=== PATIENT | male | born 1935 | race Caucasian/White ===

== ENCOUNTER 2021-05-17 12:18 | Inpatient (IN) | payer MEDICARE, BC ==
[2021-05-17] VITALS (10 sets, daily range): BP systolic 132–159; BP diastolic 70–92; PULSE 70–93; TEMP 97.3–97.8
[~2021-05-17] VITALS: Ht 180.3 cm; Wt 91.8 kg
[2021-05-17] MEDS ORDERED: ASPIRIN 81M81 MG/TA2 PO (13:34)
[2021-05-17] MEDS ORDERED: CALCIUM 600 MG1 EAC2 PO (13:35)
[2021-05-17] MEDS ORDERED: PLAVIX 75MG TAB75 MG PO (13:36)
[2021-05-17] MEDS ORDERED: VITAMIN B122500 MCG SL (13:37)
[2021-05-17] MEDS ORDERED: FERROUS SU325 MG/TAB PO (13:38)
[2021-05-17] MEDS ORDERED: GARLIC100 MG PO (13:38)
[2021-05-17] MEDS ORDERED: ZESTRIL2.5 MG PO (13:39)
[2021-05-17] MEDS ORDERED: TOPROL XL 25MG25 MG PO (13:40)
[2021-05-17] MEDS ORDERED: GLUCOPHAGE1000 MG PO (13:40)
[2021-05-17] MEDS ORDERED: CENTRUM SILVER1 CTB PO (13:41)
[2021-05-17] MEDS ORDERED: SENNA-S 50 MG-81 TAB PO ×2 (13:42→18:14)
[2021-05-17] MEDS ORDERED: MASON NATURAL600 MG PO (13:42)
[2021-05-17] MEDS ORDERED: FLOMAX 0.40.4 MG/CAP PO (13:43)
[2021-05-17] MEDS ORDERED: TIMOLOL MALEATE5 M1 OP (13:43)
[2021-05-17 14:05] LABS: HEMATOCRIT 40.1 % (42.0-52.0); HEMOGLOBIN 13.7 g/dl (13.5-18.0); MEAN CELL VOLUME 92 fl (80.0-100.0); MEAN CORPUSCULAR HEMOGLOBIN 31 pg (27-31); MEAN CORPUSCULAR HGB CONC 34 g/dl (33.0-37.0); MEAN PLATELET VOLUME 9.6 fl (7.4-10.4); PLATELET COUNT 362 K/mm3 (130-400); RED BLOOD COUNT 4.37 M/mm3 (4.20-5.60); REDCELL DISTRIBUTION WIDTH-CV 12.3 % (11.5-14.5)
[2021-05-17 14:11] LABS: INR 1.1 (0.8-3.0); PROTHROMBIN TIME 12.5 SECONDS (9.7-12.8)
[2021-05-17 14:21] LABS: ALBUMIN 3.9 gm/dL (3.4-4.8); BILIRUBIN,TOTAL 0.5 mg/dL (0.2-1.2); CALCIUM 9.2 mg/dL (8.4-10.2); CREATININE, serum 0.94 mg/dL (0.72-1.25); POTASSIUM 4.3 mmol/L (3.5-4.5); TOTAL PROTEIN 7.2 gm/dL (6.2-8.1)
--- NOTE | 2021-05-17 18:40 | NUR ---
Pt arrived to the floor, he is alert and oriented but hard of hearing. Currently he is reporting a sore throat, ice chips provided. Pt tolerating PO jello and ice water at this time. Daughter at bedside. POC discussed with patient and daughter. Drain intact to L neck, randa intact. Call light within reach.
--- NOTE | 2021-05-17 19:26 | NUR ---
Called c/o pain to neck-rating pain 6/10 on pain scale-described as constant throbbing. Tylenol given per dr mackenzie.
--- NOTE | 2021-05-17 22:23 | NUR ---
REPORT RECEIVED FROM DAY SHIFT. PATIENT IS UP FROM PACU FOR NECK DISSECTION. PATIENT IS ALERT AND ORIENTED. VSS. LUNGS CTA. BOWEL SOUNDS AUDIBLE. PATIENT DENIES PAIN OTHER THAN WHEN SWALLOWING, BUT DOES NOT WANT ANYTHING FOR THAT PAIN. LUIS DRAIN HAS OUTPUT. NECK INCISION WITH LUCIANO, NO DRESSING. SOME DRAINAGE FROM LUCIANO. PATIENT IS RESTING IN BED WITH CALL LIGHT WITHIN REACH.
[2021-05-18 00:23] VITALS: BP 143/73; PULSE 88; TEMP 97.7
--- NOTE | 2021-05-18 03:55 | NUR ---
PATIENT HAS BEEN ASKED MULTIPLE TIMES THROUGHOUT SHIFT TO URINATE. PATIENT DENIES THE NEED TO GO. BLADDER SCANNED PATIENT, MORE THAN 509ML RETAINED IN BLADDER. PROVIDED URINAL FOR PATIENT. WILL STRAIGHT CATH IF PATIENT DOES NOT URINATE. WILL CONTINUE TO MONITOR.
--- NOTE | 2021-05-18 04:33 | NUR ---
CALLED [facility] TO REQUEST AN ORDER FOR STRAIGHT CATH. PERFORMED STRAIGHT CATH ON PATIENT, HAD 500 OUTPUT.
[2021-05-18 04:34] VITALS: BP 130/70; PULSE 93; TEMP 98.1
[2021-05-18 07:37] VITALS: BP 122/65; PULSE 89; TEMP 97.9
--- NOTE | 2021-05-18 08:35 | NUR ---
Pt assessment complete. Pt is sitting up in bed upon entry, he arouses to voice. He is oriented x4. His breathing is even and unlabored on RA. Pt denies any SOB. No nausea reported. Pt reports throat pain this morning but denies pain elsewhere. Throat spray provided as well as jellow and other PO liquids. POC discussed with patient and his daughter. No needs at this time. Call light within reach.
--- NOTE | 2021-05-18 10:08 | NUR ---
stage set up worker met with patient to discuss discharge plan. Patient reports that he lives at home with his . Patient reports that he is mainly independent but that his does help assist with getting dressed at times. Patient utilizes a walker to assist with mobility while in the house and a cane outside. Patient does not utilize oxygen at home. PCP is Dr. James and he utilizes [facility] for medications. Patient does not have a DPOA-HC established. Patient is provided education that his is his primary agent and that his children Keyanna ([phone]) and Kris ([phone]) would also be his agents. Patient verbalizes his understanding and does not wish to proceed with completing form. Patient reports that he recently had [facility] but that he is not currently receiving their services. Patient was unable to tell me what he was on HH for. Collaboration made with the patient's RN to place a PT/OT eval to establish HH upon dc. Dishcarge plan: Home; possible HH from [facility]
[2021-05-18 11:15] VITALS: BP 109/60; PULSE 85; TEMP 97.8
--- NOTE | 2021-05-18 13:43 | NUR ---
First visit from the spot facer. No needs right now
--- NOTE | 2021-05-18 15:07 | NUR ---
Clinical information faxed to ([phone]) Angeli at [facility] for HH PT/OT and possible wound care. Phone number ([phone])
[2021-05-18 16:00] VITALS: BP 96/52; BP 99/53; PULSE 83; TEMP 97.4
--- NOTE | 2021-05-18 18:00 | NUR ---
Pt up to the chair most of the day, ambulated with assistance. Throat pain improved. Denies pain to neck site. Tolerating PO intake without issues. Daughter at bedside with patient.
[2021-05-18] MEDS ORDERED: TYLENOL 325MG325 MG PO (18:11)
--- NOTE | 2021-05-18 19:15 | NUR ---
Discharge paperwork and instructions reviewed with patient and his daughter. All questions answered at this time. IV to R wrist dc'd catheter tip intact. Orders to [facility] faxed on patient's behalf. Pt wheeled out of facility at this time.
== END 2021-05-18 19:18 | disposition home health service (06) | DRG 822 ==
LOC: INPTSU 12:18 → SURG 12:18
PROVIDERS: ADMIT Otolaryngology
PROC: 07T20ZZ Resection of Left Neck Lymphatic, Open Approach (ICD-10-PCS; principal; 2021-05-17 14:30)
DX: C77.0 Secondary and unspecified malignant neoplasm of lymph nodes of head, face and neck (principal); Z85.820 Personal history of malignant melanoma of skin
CPT/HCPCS: J0690; J1100; J2405; J2704; J2710; J3010; J7120